=== PATIENT | male | born 1940 | race Caucasian/White ===

== ENCOUNTER 2019-03-03 12:30 | Observation (INO) | payer MEDICARE, OTHER ==
--- NOTE | 2019-03-16 11:43 | GHP ---
[f rep st] PREOP HISTORY AND PHYSICAL DATE OF ADMISSION: 03/18/2019 He will be an a.m. admission for surgery at [facility] on February. PROBLEM: Right knee arthritis. HISTORY OF PRESENT ILLNESS: The patient is an 79-year-old man admitted for a right total knee arthroplasty. He has had gradually progressive pain in the knee. He has night pain. Occasionally he uses Aleve. Occasionally the knee is so painful he has to walk with crutches. His activities are limited and it is affecting the quality of his life. He has failed nonsurgical treatment. PAST MEDICAL HISTORY: Overall he is in good general health. He has sleep apnea and uses a CPAP machine. No history of heart disease, stents, DVT, hepatitis, MRSA staph infections or hereditary bleeding disorders. He has had bilateral total hip arthroplasties by Dr. Muniz. He has also had bilateral total shoulder arthroplasties by Dr. Drew Patel. CURRENT MEDICATIONS: None. He does not take aspirin. ALLERGIES: Drug allergies: None. Metal allergy: None. Latex allergy: None. SOCIAL HISTORY: The patient has been 58 years. He does not smoke cigarettes and rarely drinks alcohol. He is retired. PHYSICAL EXAMINATION: VITALS: Height 5 feet 11 inches. Weight 210 pounds. BMI 29.3. EYES: The conjunctivae and sclerae are clear. He has had bilateral cataract surgery. MOUTH: Good oral hygiene. No loose teeth. CHEST: Clear. HEART: Regular rhythm. No murmurs. EXTREMITIES: Pertinent findings are limited to his right knee. He lacks the last couple of degrees of full extension and flexes to 110 degrees. He is tender along the medial joint line. His ligaments are stable. IMPRESSION ON ADMISSION: 1. Right knee degenerative arthritis. He is prepared for a right total knee arthroplasty. 2. Seven years status post successful left total knee arthroplasty. 3. Status post bilateral total hip arthroplasties. 4. Status post bilateral total shoulder arthroplasties. 5. Sleep apnea. 6. Status post bilateral cataract surgery with lens implants. PLAN: He will undergo a right total knee arthroplasty. The surgery has been described to him, including the risks, complications, expectations, and recovery time. I have stressed the importance of postoperative physical therapy. Advised him that a small percentage of people do not get a good result with a total knee and sometimes we cannot figure out why it is not a better result. I also advised him that with bilateral procedures, there can be mild [id number] differences during the recovery and even with the final result. All his questions have been answered, and he consents to surgery. /[id number]/MODL MTDD
[2019-03-18] MEDS ORDERED: TRANEXAMIC ACID 3,000 MG in NS (SYRINGE) 50 ML IRR ONE (06:00)
[2019-03-18] MEDS ORDERED: POVIDONE-IODINE 20 ML in SODIUM CL IRRIG SOLUTION 500 ML IRR ONE (06:00)
[2019-03-18] MEDS ORDERED: TRANEXAMIC ACID 1,000 MG in NS 100 ML IV ONE (06:00)
[2019-03-18] MEDS ORDERED: ROPIVACAINE 0.2% 80 MG, EPINEPHrine 0.2 MG, KETOROLAC TROMETHAMINE 30 MG in SYRINGE 0 ML IU ONE (06:00)
[2019-03-18] MEDS ORDERED: TRANEXAMIC ACID 3,000 MG/50 ML BAG IRR ONE (08:24)
[2019-03-18] MEDS ORDERED: VANCOMYCIN 1 GM VIAL ONE (08:25)
[2019-03-18] MEDS ORDERED: DEXAMETHASONE 4 MG/ML VIAL IVP ONE (08:27)
[2019-03-18] MEDS ORDERED: FAMOTIDINE 20 MG TAB PO ONE (08:27)
[2019-03-18] MEDS ORDERED: ONDANSETRON 4 MG/2 ML VIAL IVP ONE (08:27)
[2019-03-18] MEDS ORDERED: ceFAZolin 2 GM/DEXTROSE 100 ML IV ONE (08:27)
[2019-03-18] MEDS ORDERED: ACETAMINOPHEN 325 MG TAB PO ONE (08:27)
[2019-03-18] MEDS ORDERED: ceFAZolin 1 GM/5 ML SYR ONE (08:27)
[2019-03-18] MEDS ORDERED: LR 1,000 ML IV ONE (08:32)
--- NOTE | 2019-03-18 09:07 | PDHPUP ---
History & Physical Update H&P update statement: This history and physical update is based on an assessment of the patient which was completed after admission or registration (within 24 hours), but prior to the surgery/procedure. H&P update: H&P reviewed & patient examined
--- NOTE | 2019-03-18 09:35 | PDANEPAE ---
ANE History of Present Illness OA here for R TKA ANE Past Medical History - Cardiovascular History Hx Hypertension: No Hx Arrhythmias: No Hx Chest Pain: No Hx Coronary Artery / Peripheral Vascular Disease: No Hx CHF / Valvular Disease: No Hx Palpitations: No - Pulmonary History Hx COPD: No Hx Asthma/Reactive Airway Disease: No Hx Recent Upper Respiratory Infection: No Hx Oxygen in Use at Home: No Hx Sleep Apnea: Yes Sleep Apnea Screening Result - Last Documented: Positive Pulmonary History Comment: USAMA uses CPAP - Neurologic History Hx Cerebrovascular Accident: No Hx Seizures: No Hx Dementia: No - Endocrine History Hx Diabetes: No - Renal History Hx Renal Disorders: No - Liver History Hx Hepatic Disorders: No - Neurological & Psychiatric Hx Hx Neurological and Psychiatric Disorders: No Neurological / Psychiatric History Comment: right hand carpal tunnel - Cancer History Hx Cancer: No - Congenital Disorder History Hx Congenital Disorders: No - GI History Hx Gastrointestinal Disorders: Yes Gastrointestinal History Comment: ruptured diverticulum 20-25yrs ago - Other Health History Other Health History: bruises easily. LITTLE TRAVERSE. bilat cataract sx - Chronic Pain History Chronic Pain: No - Surgical History Prior Surgeries: none in last 5 yrs. cataract sx bilat. bilat ASHLEY. L TKA. BILAT SHOULDER SX ANE Review of Systems Review of Systems: - Exercise capacity METS (RN): 4 METS ANE Patient History - Allergies Allergies/Adverse Reactions: No Allergies [NKDA] Allergy (Verified 03/12/19 11:09) - Home Medications Home Medications: Ascorbic Acid [Vitamin C 500 mg (OTC)] 1,000 mg PO DAILY 04/28/12 [Last Taken 3 Days Ago ~03/15/19] Cholecalciferol Vit D3 [Vitamin D3 2000 units (OTC)] 2,000 units PO DAILY [Last Taken 3 Days Ago ~03/15/19] Herbals/Supplements -Info Only 1 ea PO DAILY 04/28/12 [Last Taken 3 Days Ago ~] Vitamin B Complex [Vitamin B Complex (OTC)] 1 each PO DAILY 04/28/12 [Last Taken 3 Days Ago ~03/15/19] Calcium Carbonate [Oyster Shell Calcium 500 mg (*)] 500 mg PO DAILY 02/03/19 [ Last Taken 3 Days Ago ~03/15/19] Naproxen Sodium [Aleve 220 MG (*)] 220 mg PO BID PRN 02/03/19 [Last Taken 3 Days Ago ~03/15/19] celeCOXIB [Celebrex (*)] 200 mg PO DAILY 03/10/19 [Last Taken 03/17/19] oxyCODONE IR [Oxycodone Ir (*)] 5 mg PO Q4-6PRN PRN 03/10/19 [Last Taken Unknown ] - NPO status NPO Status: no food or drink >8 hours NPO Since - Liquids (Date): 03/18/19 NPO Since - Liquids (Time): 06:30 NPO Since - Solids (Date): 03/17/19 NPO Since - Solids (Time): 20:00 - Anes Hx Anes Hx: no prior problems - Smoking Hx Smoking Status: Never smoked - Alcohol Use Alcohol Use: Occasionally - Family Anes Hx Family Hx Anesthesia Complications: none ANE Labs/Vital Signs - Vital Signs Blood Pressure: 164/119 Heart Rate: 77 Respiratory Rate: 10 O2 Sat (%): 96 Height: 180.34 cm Weight: 94.801 kg ANE Physical Exam - Airway Neck exam: decreased ROM Mallampati Score: Class 2 Mouth exam: normal dental/mouth exam - Pulmonary Pulmonary: no respiratory distress - Cardiovascular Cardiovascular: regular rate and rhythym - ASA Status ASA Status: II ANE Anesthesia Plan Anesthesia Plan: GA with mask, spinal Regional Anesthesia: continuous NB, adductor canal FNB Total IV Anesthesia: Yes
[2019-03-18] MEDS ORDERED: PROPOFOL/EMULSION 500 MG/50 ML BOTTLE IV ONE ×2 (09:43→10:39)
[2019-03-18] MEDS ORDERED: HYDROmorphONE/DILAUDID 1 MG/ML INJ IVP PRN (11:08)
[2019-03-18] MEDS ORDERED: oxyCODONE IR 5 MG TAB PO PRN ×2 (11:08→12:06)
[2019-03-18] MEDS ORDERED: NALOXONE HCL 0.4 MG/ML INJ IVP PRN (11:08)
[2019-03-18] MEDS ORDERED: ONDANSETRON 4 MG/2 ML VIAL IVP PRN ×2 (11:08→12:06)
[2019-03-18] MEDS ORDERED: ACETAMINOPHEN 500 MG TAB PO PRN (11:08)
[2019-03-18] MEDS ORDERED: fentaNYL 100 MCG/2 ML INJ IVP PRN (11:08)
[2019-03-18] MEDS ORDERED: HYDROCODONE/APAP 5/325 TAB PO PRN (11:08)
[2019-03-18] MEDS ORDERED: PROPOFOL 200 MG/20 ML VIAL ONE (11:43)
--- NOTE | 2019-03-18 11:44 | POSTOPPROG ---
Post Op Note Date of Operation: 03/18/19 Surgeon: Suhas Coleman Splicing Supervisor: Parvin Anesthesiologist: Argelia Anesthesia: IV Sedation, Spinal Post-op Diagnosis: Right knee severe degenerative arthritis Procedure: Right total knee arthroplasty Inf/Abcess present in the surg proc area at time of surgery?: No EBL: 50-100 (Adductor canal block in PACU.)
[2019-03-18] MEDS ORDERED: diphenhydrAMINE 25 MG CAP PO PRN (12:06)
[2019-03-18] MEDS ORDERED: BISACODYL 10 MG SUPP PR PRN (12:06)
[2019-03-18] MEDS ORDERED: MAGNESIUM HYDROXIDE 30 ML UDCUP PO PRN (12:06)
[2019-03-18] MEDS ORDERED: METOCLOPRAMIDE 10 MG/2 ML VIAL IVP PRN (12:06)
[2019-03-18] MEDS ORDERED: POLYETHYLENE GLYCOL 3350 17 GM PKT PO PRN (12:06)
[2019-03-18] MEDS ORDERED: PROMETHAZINE HCL 25 MG SUPPR PR PRN (12:06)
[2019-03-18] MEDS ORDERED: ONDANSETRON DISINTEGRATING 4 MG TAB PO PRN (12:06)
[2019-03-18] MEDS ORDERED: DIPHENOXYLATE/ATROPINE LOMOTIL 1 TAB PO PRN (12:06)
[2019-03-18] MEDS ORDERED: TEMAZEPAM 15 MG CAP PO PRN (12:06)
[2019-03-18] MEDS ORDERED: PROMETHAZINE HCL 25 MG/ML INJ IVP PRN (12:06)
[2019-03-18] MEDS ORDERED: traMADol 50 MG TAB PO PRN (12:06)
[2019-03-18] MEDS ORDERED: LACTULOSE 20 GM/30 ML UDCUP PO PRN (12:06)
[2019-03-18] MEDS ORDERED: NS 500 ML IV PRN (12:06)
[2019-03-18] MEDS ORDERED: CYCLOBENZAPRINE 10 MG TAB PO PRN (12:06)
--- NOTE | 2019-03-18 12:09 | POSTANESTH ---
Post Anesthetic Evaluation Cardiovascular Status: Normal, Stable, Similar to Pre-Op Cond Respiratory Status: Normal, Stable, Requires Airway Assist Level of Consciousness/Mental Status: Moderately Sleepy Pain Control: Adequate, Prn Tx Ordered Nausea/Vomiting Control: Adequate, Prn Tx Ordered Complications Possibly Related to Anesthesia: None Noted
--- NOTE | 2019-03-18 12:20 | GOP ---
[f rep st] OPERATIVE REPORT DATE OF OPERATION: 03/18/2019 SURGEON: Suhas Coleman MD PRODUCTION OR PLANT ENGINEER: 1. Felix Albarado. 2. Allen Quinn. ANESTHESIA: Combination of Marcaine, spinal, IV sedation, and adductor canal block. ANESTHESIOLOGIST: Etienne Stout MD. PREOPERATIVE DIAGNOSIS: Right knee severe degenerative arthritis. POSTOPERATIVE DIAGNOSIS: Right knee severe degenerative arthritis. PROCEDURE PERFORMED: 03/18/2019, right total knee arthroplasty, Arnett and Nephew Journey II, cemente d, posterior stabilized. FINDINGS: DESCRIPTION OF PROCEDURE: The patient was given 2 g of IV Ancef preoperatively within 60 minutes of surgery. He also received 1000 mg of IV tranexamic acid. He was placed on the operating room table and given spinal anesthesia with Marcaine by Dr. Stout. He was then placed supine and given IV sedat ion. A Pratt catheter was not used. He wore a AYAH stocking and SCD on the nonoperative leg. A bols ter was placed under his right hip to prevent excessive external rotation of the leg. The right lowe r extremity was prepped with ChloraPrep from the upper thigh tourniquet to the tips of the toes. It was draped free using sterile sheets, stockinette, and Ioban plastic adhesive drape. The lower leg w as wrapped with compressive Coban. The leg was exsanguinated with elevation and a 6-inch compressive wrap, and the tourniquet was inflated to 300 mmHg. The World Health Organization time-out was performed to verify the correct patient identity and the c orrect surgical side and site. The [place] time-out was also performed. The [employer] leg holding device was sterilely attached to the operating room table and used throughout the procedure to help position the knee. A straight midline incision was made centered on the patell a. Subcutaneous tissues were sharply divided, and hemostasis was obtained using electrocautery. A m edial subcutaneous flap was developed, and the capsule and synovium were opened in a medial parapatel lar fashion. Extensive degenerative changes were present in all 3 compartments. The medial capsule and periosteum were elevated off the rim of the medial tibial plateau all the way around to the poste romedial corner. His medial collateral ligament was released enough to balance the medial side of th e knee. In order to improve exposure, the patella was prepared first. The original thickness of the patella was measured. Peripheral osteophytes were removed. I cut a flat surface on the back of the patella. His patella was sized for a 38 mm oval resurfacing component. I removed enough bone from the jon la such that the remaining bone plus the thickness of the patellar component recreated the original t hickness of the patella. The composite thickness was 25 mm. The intramedullary alignment guide system was used to set up the distal femoral cut. The distal femu r was cut in 5 degrees of valgus. Because of a 10-15 degree preoperative flexion contracture, I made a +2 mm cut on the distal femur. The sizing jig was used to determine proper femoral sizing. He wa s a true size 8 without a shift. The 5-in-1 cutting block was applied, and the anterior and posterio r condylar cuts and chamfer cuts were made. The final jig was used to remove the central portion of the distal femur to accommodate the posterior stabilized femoral component. I was careful to determi ne proper rotation by referencing off Kiran line and other bony landmarks. Each cut was checked for accuracy. The femur was sized for a size 8 posterior stabilized component. Exposure was difficu lt because he had a large tight knee. Next, the tibia was prepared. The proximal tibial cut was made using the extramedullary alignment gu neal system. The cut was made in a few degrees of posterior slope. I was careful to achieve proper v arus/valgus alignment and proper rotation. The posterior compartment was cleared of meniscal remnant s. Osteophytes were removed from the back of his femoral condyles. I checked the flexion/extension gaps, and they were both a little bit tight. I went back and cut 2 more mm off the tibia. At this p oint, the flexion/extension gaps were equal, balanced, and rectangular. The tibia was sized for a si ze 7 component. With the trial components in place, I selected a 10 mm polyethylene posterior stabil ized tibial insert. The knee came to full extension, flexed to 130 degrees. His collateral ligament s were stable and balanced in 90 degrees of flexion and full extension. The trial patellar button wa s applied, and tracking was checked. He had excellent tracking without any digital pressure. 40 cc of the joint anesthetic cocktail were injected into the posterior capsule, the quadriceps muscl e and tendon areas, and the subcutaneous tissues along the skin edges. The surfaces were prepared for cementing. They were carefully cleaned with the pulsating lavage irri gation and thoroughly dried. The CarboJet device was used to blow dry the cancellous surfaces. A do uble batch of high viscosity methylmethacrylate cement with 2 g of powdered vancomycin added was mixe d. While it was still in a doughy state, all [address] components were cemented in place. Excess cement was removed before it hardened. The 10 mm trial tibial insert was re-tried and was the proper thickness. The actual component was in serted and locked into place. The knee was thoroughly irrigated 1 final time with a dilute Betadine solution. The tourniquet was deflated and the total tourniquet time was 1 hour and 16 minutes. 50 c c of tranexamic acid solution were irrigated into the wound. The vastus medialis portion of the extensor mechanism was repaired with several interrupted figure-of -eight #2 FiberWire sutures. The capsule and synovium were closed first with multiple interrupted fi [id number] 0 PDS sutures, followed by a running #2 barbed Ethicon Stratafix PDO suture. The subcu taneous tissues were closed with a running 0 barbed Ethicon Stratafix Monoderm suture. The skin was closed with a running 3-0 barbed Ethicon Stratafix Monoderm subcuticular suture. The skin was sealed with 1/2-inch Steri-Strips. The wound was covered with a large Mepilex waterproof dressing. The TE D stocking was applied, followed by the 6-inch compressive wrap, the SCD, and the cooling device. He wore a AYAH stocking and SCD on the opposite leg during the procedure. The sacral Mepilex dressing w as applied. I used a size 8 Arnett and Nephew cemented Oxinium posterior stabilized femoral component, size 7 ceme nted tibial base plate, and a 10 mm posterior stabilized tibial insert and a 38 mm cemented oval all polyethylene resurfacing patellar component. Estimated blood loss following deflation of the tourniquet was about 100 cc. The sponge and needle count were correct on 2 occasions. He was awakened from anesthesia, transferred to his gurney, and taken to PACU in satisfactory conditi on. There were no recognized intraoperative complications. In the PACU, for additional postoperativ e pain control, Dr. Stout performed an adductor canal block. Felix Albarado and Allen Quinn acted as surgical assistants. Their assistance was a medical necess ity for safe completion of the procedure. /[id number]/MODL
[2019-03-18] MEDS ORDERED: LR 1,000 ML IV SCH (12:30)
--- NOTE | 2019-03-18 14:52 | SOAPPROG ---
SOAP Progress Note Assessment/Plan: Assessment: s/p right TKA - procedure earlier today with Dr. Coleman Doing well Has a history of bilateral shoulder, bilateral hip and left knee arthroplasties ; he is familiar with the recovery process Plan: Begin d/c planning - he would like to go home today, will have support from his significant other. Need clearance from PT and OT prior to d/c Continue VTE ppx- aspirin 325 mg QD x 21 days, AYAH hose x 1 week, SCDs in hospital Continue oral pain medication oxycodone, Tylenol, Celebrex, Tramadol Continue PT efforts WBAT, ROM as tolerated Follow up with Dr. Coleman on 03/30/19 03/18/19 14:56 Subjective: Patient states he is doing well, right knee pain is minimal at this time secondary to the spinal anesthesia and nerve block. He is hoping to going home today and will have the support of his significant other. He denies SOB, CP, fever, chills. Objective: Vital Signs Temp Pulse Resp BP Pulse Ox 36.4 C 81 17 149/86 H 98 03/18/19 14:21 03/18/19 14:21 03/18/19 14:21 03/18/19 14:21 03/18/19 14:21 03/17/19 03/18/19 03/19/19 05:59 05:59 05:59 Intake Total 1550 Output Total 0 Balance 1550 Patient resting comfortably in bed, no acute distress. His significant other is present in the room. RLE: Knee wound dressings clean, dry and intact. Thigh high AYAH hose and SCDs are in place. Lower leg compartments are soft and nontender. Negative Homans sign bilaterally. Patient can actively DF and PF his right foot and great toe against resistance. Grossly NVI distally. ICD10 Worksheet Patient Problems: Problems Problem Status Onset Osteoarthritis of right knee Acute Unilateral primary osteoarthritis, right knee Acute
--- NOTE | 2019-03-18 15:24 | PDDCSUM ---
Discharge Summary Discharge Summary: ADMISSION DIAGNOSIS: Right knee severe degenerative arthritis DISCHARGE DIAGNOSIS: Right knee severe degenerative arthritis OPERATION PERFORMED: March 18, 2019, Right total knee arthroplasty POSTOPERATIVE COMPLICATIONS: None CONDITION ON DISCHARGE: Improved DESCRIPTION OF HOSPITAL COURSE: The patient was admitted to the hospital on the morning of surgery. The patients admission CBC, electrolytes, BUN, and creatinine were normal. The same day, under a combination of Marcaine, spinal, IV sedation, and adductor canal block patient underwent a right total knee arthroplasty. Postoperatively, patient was treated with multimodal DVT prophylaxis, including aspirin 325 mg once daily, AYAH hose and SCDs. Patient was seen by PT and OT and made excellent progress with ambulation and stairs. Patient was able to void spontaneously. Patient progressed better than expected and was able to discharge the same day of surgery. At the time of discharge, patient was afebrile, wound was clean and dry. Patient is walking with a walker. DISPOSITION: The patient is discharged home and will have outpatient PT at the end of next week. Patient may progress to full weightbearing on the right lower extremity as tolerated. AYAH stockings for 1 week. Aspirin 325 mg once daily for 21 days. Patient has prescriptions for Celebrex, oxycodone, and tramadol for pain control. The patient will be seen by Dr. Coleman in the office on March 30, 2019. If there are any problems, patient is to call Dr. Coleman at the office.
[2019-03-18 17:41] VITALS: BP 133/77
[2019-03-18] MEDS ORDERED: ceFAZolin 2 GM/DEXTROSE 100 ML IV SCH (18:00)
[2019-03-18] MEDS ORDERED: KETOROLAC 15 MG/1 ML SDV IVP SCH (18:00)
[2019-03-18] MEDS ORDERED: ACETAMINOPHEN 325 MG TAB PO SCH (18:06)
[2019-03-18] MEDS ORDERED: FAMOTIDINE 20 MG TAB PO SCH (21:00)
[2019-03-18] MEDS ORDERED: ASPIRIN 325 MG TAB PO SCH (21:00)
[2019-03-18] MEDS ORDERED: SENNOSIDES/DOCUSATE SODIUM TAB PO SCH (21:00)
[2019-03-19] MEDS ORDERED: FERROUS SULFATE 325 MG TAB PO SCH (08:00)
== END 2019-03-18 18:17 | disposition home or self-care (01) ==
LOC: F3N 03-18 08:05
PROVIDERS: ADMIT Orthopaedic Surgery; ATTEND Orthopaedic Surgery
PROC: 0SRC069 Replacement of Right Knee Joint with Oxidized Zirconium on Polyethylene Synthetic Substitute, Cemented, Open Approach (ICD-10-PCS; principal; 2019-03-18 09:45)
DX: M17.11 Unilateral primary osteoarthritis, right knee (principal); G47.33 Obstructive sleep apnea (adult) (pediatric); Z96.652 Presence of left artificial knee joint
CPT/HCPCS: 27447; 73560; 88311; 97110; 97116; 97161; 97165; C1713; C1776; G0378; J0171; J0690; J1100; J1885; J2405; J2704; J2795; J3370